=== PATIENT | female | born 1935 | race Caucasian/White ===

== ENCOUNTER → 2017-07-04 17:18 | Outpatient (CLI) | payer MEDICARE, BC, SELFPAY ==
--- NOTE | 2017-07-04 | FLU_PTH ---
PATIENT: ALEX FLORIAN LOC: [facility] U#:[id number] AGE/SX: 89/F ROOM: RE07/04/[address]: Dr. Carol Brooks MD : 1935 BED: DIS: SPEC #: [id number] RECD: 07/04/17 16:52 STATUS: STEVEN RICARDO #: [id number] DENIS: 07/04/17 00:[address]: Carol Brooks DEPT: CYTOLOGY RECD BY: Victor M Malik ENTERED: 07/05/17 12:09 SP TYPE: Fluid OTHR DR: Dr. Robby Bautista MD Tissues: A - Thyroid gland, NOS B - Thyroid gland, NOS Procedures: Pap Stain (control) Special Stain Group II Surgery Specimen Level IV Cell Block Cytospin Fluid Cytology Other HEADER OPERATION: FNA of right thyroid nodule PRE-OP DIAGNOSIS: Inferior right thyroid nodule TISSUE SUBMITTED: A ? FNA right thyroid nodule fluid for cytology, B - FNA right thyroid nodule (8?slides) DIAGNOSIS CYTOLOGY A. Right thyroid nodule fluid, FNA (cytospin and cell block): Rare benign follicular cells noted. B. Right thyroid nodule, FNA (smears): Consistent with benign follicular nodule. See cytology study and comment. SJ:crystal 07/06/17 COMMENT Correlation with clinical, radiologic findings and appropriate follow up are necessary. CYTOLOGY STUDY Slides are reviewed. B. The specimen is adequate for evaluation. The specimen consists of benign follicular cells and colloid. CYTOLOGY GROSS A - Received is 50 ml of francois, cloudy fluid labeled with the patient's name and and designated per the requisition as right thyroid. Submitted for cytology preparation including cell block. B - Received are eight smears labeled with the patient's name and designated per the requisition as right thyroid nodule. Submitted for staining. / 07/05/17 TC:5 CPT: 29516, 16929, 00454
== END ==
PROVIDERS: Family Provider Internal Medicine; PCP Internal Medicine; Visit Provider Surgery
DX: E04.1 Nontoxic single thyroid nodule (principal)
CPT/HCPCS: 88108; 88161; 88305; 88313

== ENCOUNTER 2017-12-20 14:37 | Emergency (ER) | payer MEDICARE, BC, SELFPAY ==
[2017-12-20 14:39] VITALS: BP 162/88; PULSE 88; RESP 17; TEMP 37.2; O2SAT 94; BMI 28.9
--- NOTE | 2017-12-20 15:10 | RAD_ITS ---
STUDY: X-RAY CHEST REASON FOR EXAM: Female, 82 years old. Increasing neck pain and shoulder pain. TECHNIQUE: Single AP portable view of the chest. COMPARISON: Comparison is made with prior examination dated May 14, 2013. FINDINGS: Hyperinflation. Scattered calcified granulomas. There is no demonstrated pleural abnormality. There is mild cardiac enlargement. Normal mediastinum and rima. Normal visualized pulmonary arteries. There is atherosclerotic calcification of the aortic arch with tortuosity. There are diffuse degenerative changes of the visualized thoracic spine. Normal visualized ribs, clavicles, and shoulders. Large hiatal hernia. RAD/Chest 1 View (Portable) IMPRESSION: Large hiatal hernia. Electronically Signed: Cam Cruz MD at 15:36 EDT Tel [phone], Service support ,
--- NOTE | 2017-12-20 15:10 | EKG12_ITS ---
Test Reason : SHOULDER PAIN Blood Pressure : / mmHG Vent. Rate : 077 BPM Atrial Rate : 077 BPM P-R Int : 180 ms QRS Dur : 090 ms QT Int : 388 ms P-R-T Axes : 057 029 057 degrees QTc Int : 439 ms Normal sinus rhythm Possible Left atrial enlargement Borderline ECG Confirmed by VALERIE LAGUNA, TAMIA ([id number]), fan mail editor IZZY GARDNER ([id number]) on 12/24/2017 2:49:54 PM Referred By: ROLY Confirmed By:TAMIA PADILLA MD
--- NOTE | 2017-12-20 15:16 | ED.DCSUM_ITS ---
- ER Visit Summary Date of Service: 12/20/17 Chief Complaint: Shoulder pain History of Present Illness: The patient is a 82 F with left shoulder pain that started yesterday evening around 5 PM. The pain does not radiate. It is worse when laying on her stomach. It makes her nauseated and she had increased reflux and vomiting. She also reports that her stomach is burning. She has a history of a hiatal hernia and acid reflux. She took Tylenol but it did not seem to help. She thinks the pain is making her symptoms worse. She has had this many times in the past. She denies any cardiac history, history of aortic disease, or history of PE. She denies any chest pain or shortness of breath. Denies fevers or abdominal pain. Denies injuries. Denies leg pain or swelling. Physical Examination: Afebrile and vital signs unremarkable. Alert and oriented. No acute distress. Sitting comfortably. Neck is nontender with good range of motion. Heart regular rate and rhythm. Lungs clear bilaterally. Abdomen soft and nontender. Back is nontender. Skin appears unremarkable. Extremities nontender with no edema. Good pulses and sensation distally. Test Results: Testing is pending. Emergency Department Course and Treatment: I believe the patient has referred pain from her acid reflux. I did consider cardiac, pulmonary, vascular, and other GI pathology. EKG, chest x-ray, labs pending. Will treat with Zofran and a GI cocktail while awaiting results. Patient had good improvement in her symptoms after treatment with GI cocktail and Zofran. Her laboratory studies, chest x-ray, and EKG were all unremarkable except for a large hiatal hernia. I believe this is the cause of her symptoms and not referred cardiac pain. This was discussed with the patient and her family. I advised the only way to check for things like acute coronary syndrome, dissection, and PE would entail admission or further testing. They declined. She would like to follow-up with her doctor. I advised to call tomorrow. She will increase her Prilosec. She has Zofran at home to use. Return for any new or worsening issues. Treatment Plan: As above Disposition: Discharged Impression: 1. Gastroesophageal reflux disease 2. Hiatal hernia This note was generated with Logic[employer] software. It may contain incorrect words, spelling, and punctuation that were not noted in review of the chart prior to signing ED Disposition - Plan for ED Patient: Chief Complaint: Other, Pain/Inj Referrals: Robby Bautista MD [Primary Care Provider] -
[2017-12-20] MEDS: Ondansetron 4 MG/2 ML Vial IV (15:27)
[2017-12-20] MEDS: Mag Hydrox/Al Hydrox/Simeth 30 ML UDC PO (15:27)
[2017-12-20 15:29] VITALS: BP 153/81; PULSE 79; RESP 20; O2SAT 95
[2017-12-20 15:39] LABS: Absolute Lymphocyte Count 0.66 X10^3/ul (0.83-4.51); Absolute Neutrophil Count 6.5 X10^3/uL (2.0-7.7); Basophil# 0.01 X10^3/uL; Basophil% 0.1 % (0-1); Hematocrit 37.9 % (37-47); Hemoglobin 12.4 g/dl (12.0-15.0); Lymphocyte # 0.66 X10^3/ul (4.0); Lymphocyte % 8.7 % (19-41); Mean Corp Hgb Conc 32.7 g/gl (32-36); Mean Corpuscular Volume 91.8 fL (81-99); Mean Platelet Vol. 9.1 fl (6.2-12.0); Monocyte# 0.39 X10^3/uL; Monocyte% 5.1 % (0-10); Neutrophil # 6.54 X10^3/uL (2.7-7.7); Platelet Count 270 K/mm3 (150-450); RBC Distribution Width CV 14.2 % (11.6-14.6); RBC Distribution Width SD 47.5 fl (35.1-43.9); Red Blood Count 4.13 M/mm3 (4.2-5.4); White Blood Count 7.6 K/mm3 (4.4-11.0)
[2017-12-20 15:50] LABS: POSITIVE COUNT NO; POSITIVE DIFFERENTIAL NO; POSITIVE MORPHOLOGY NO
[2017-12-20 15:57] LABS: AST(SGOT) 14 U/L (15-37); Alanine Aminotransfer ALT/SGPT 21 U/L (13-56); Albumin, Serum 3.6 g/dL (3.2-5.0); Alkaline Phosphatase 66 U/L (45-117); Anion Gap 12 (5-15); BUN 18 mg/dL (7-18); BUN/Creat Ratio 21.6 RATIO (10-20); Bilirubin, Direct 0.09 mg/dL (0.00-0.30); Calcium,Total 9.1 mg/dL (8.5-10.1); Chloride 103 mmol/L (98-107); Creatinine, Serum 0.83 mg/dL (0.55-1.02); EST Glomerular Filtration Rate 70 mL/min (>60); Est Glom Filt Rate - Afr Amer 85 mL/min (>60); Estimated Creatinine Clearance 44.72 ml/min; Globulin 4.2 g/dL (2.2-4.2); Glucose 131 mg/dL (74-106); Lipase 212 U/L (73-393); Potassium 4.1 mmol/L (3.5-5.1); Protein, Total 7.8 g/dL (6.4-8.2); Sodium Level 139 mmol/L (136-145)
--- NOTE | 2017-12-20 16:17 | ED.DEP ---
ED Disposition - Plan for ED Patient: Chief Complaint: Other, Pain/Inj Instructions: ED GERD Referrals: Robby Bautista MD [Primary Care Provider] -
[2017-12-20 16:27] VITALS: BP 148/75; PULSE 72; RESP 18; O2SAT 98
== END 2017-12-20 16:27 | disposition home or self-care (01) ==
PROVIDERS: Emergency Provider Emergency Medicine; Family Provider Internal Medicine; PCP Internal Medicine
DX: K21.9 Gastro-esophageal reflux disease without esophagitis (principal); K44.9 Diaphragmatic hernia without obstruction or gangrene; R11.2 Nausea with vomiting, unspecified; M54.2 Cervicalgia; I10 Essential (primary) hypertension; M19.90 Unspecified osteoarthritis, unspecified site; Z79.899 Other long term (current) drug therapy; Z87.440 Personal history of urinary (tract) infections
CPT/HCPCS: 71045; 80048; 80076; 83690; 84484; 85025; 93005; 96374; 99285; J2405

== ENCOUNTER 2019-02-27 16:29 | Emergency (ER) | payer MEDICARE, BC, SELFPAY ==
[2019-02-27 16:30] VITALS: BP 166/77; PULSE 99; RESP 17; TEMP 37.2; O2SAT 93; BMI 26.5
--- NOTE | 2019-02-27 17:05 | EKG12_ITS ---
Test Reason : N AND VOMIT Blood Pressure : / mmHG Vent. Rate : 092 BPM Atrial Rate : 092 BPM P-R Int : 184 ms QRS Dur : 100 ms QT Int : 370 ms P-R-T Axes : 053 033 053 degrees QTc Int : 457 ms Normal sinus rhythm Possible Left atrial enlargement Borderline ECG Confirmed by RAYMOND LAGUNA, KILO ([id number]), desk editor IZZY GARDNER ([id number]) on 03/02/2019 10:03:35 AM Referred By: PARKER Confirmed By:JACE NADRADE MD
--- NOTE | 2019-02-27 17:08 | ED.DCSUM_ITS ---
History of Present Illness Chief Complaint: Nausea/Vomiting/Diarrhea Informant: Patient - Abdominal Pain/Flank Pain Onset: Yesterday Context: Gradual Onset Timing: Continuous Quality: Sharp - Nausea/Vomiting/Emesis GI Symptom: Nausea, Vomiting Onset: Yesterday Quality: Coffee ground - Diarrhea/Melena/Hematochezia GI Symptom: Diarrhea - x1 Onset: Yesterday Stool Quality: Negative for: Black, Maroon, RENETTA per rectum Narrative: Patient is an 83-year-old female with history of low back pain, hypertension and a hiatal hernia presenting with vomiting and diarrhea. Patient states she started vomiting last night. She is had 7 episodes of vomiting. She states she feels very nauseous and has pain in her left neck/upper back. She states that the pain is very severe she vomits. Pain is worse with movement. Her [id number] thought some of her emesis looked coffee-ground so she recommended the patient come to emergency room for further evaluation. Patient also had one episode of diarrhea. Patient denies any black or blood in her stool. Patient denies any abdominal pain. She states she said prior episodes and thinks it is her hiatal hernia. She denies a history of small bowel obstruction. She denies any chest pain, shortness of breath or difficulty breathing. She denies any fever or chills. She denies any other complaints at this time. Prior similar symptoms: Yes Recent Illness/Hospitalization: No Past Medical History - Allergies and Home Meds Allergies/Adverse Reactions: Allergies aspirin Adverse Reaction (Verified 02/27/19 16:30) Other ibuprofen Adverse Reaction (Verified 02/27/19 16:30) Other latex Adverse Reaction (Verified 02/27/19 16:30) Rash Primary Care Physician: Robby Bautista MD [Primary Care Provider] - Past Medical History: - - Hiatal hernia, hypertension Surgical History: hysterectomy, - Smoking Status: Never smoker Review of Systems General: Denies: Chills, Fever, Sweats Eyes: Denies: Visual changes - bilaterally, Diplopia ENT: Denies: Rhinorrhea, Sore throat Cardiovascular: Denies: Chest pain, Palpitations Respiratory: Denies: Dyspnea, Cough, Dyspnea on exertion Gastrointestinal: Reports: Abdominal pain, Nausea, Vomiting, Diarrhea. Denies: Melena, Hematochezia Genitourinary: Denies: Dysuria, Hematuria, Frequency Musculoskeletal: Reports: Neck pain. Denies: Back pain, Extremity Pain Skin: Denies: Rash, Wounds Neurological: Denies: Headache, Weakness, Numbness Physical Exam Vital Signs/Narrative: Vital Signs Temp Pulse Resp BP Pulse Ox 02/27/19 16:30 98.9 F 99 17 166/77 H 93 Inital Vital Signs reviewed: Yes General: Well nourished, Well developed, No Acute Distress Head: Normocephalic, Atraumatic Eyes: Perrl, EOMI. Negative for: Pale conjunctiva ENT: Moist mucous membranes, No rhinorrhea Neck: Supple, Nontender, No JVD, - - Left paraspinal tenderness to palpation, tenderness palpation over the left upper trapezius Cardiovascular: Regular rate, Regular rhythm, No murmurs Respiratory: No distress, CTA bilaterally, Chest nontender Abdomen: Soft, Nontender, Nondistended, Hypoactive bowel sounds Back: Nontender, Normal Inspection Extremities: Nontender, No edema Skin: Normal color, No rash Neurological: Alert, Oriented x3, Cranial nerves II-XII grossly intact, Normal Strength, Normal Sensation Psychological: Normal affect, Normal Mood Diagnostic/Tx/Re-eval Clinical Impression(s) from Imaging Studies Abdomen/Pelvis CT 02/27/19 17:10 IMPRESSION: 1. Paraesophageal hernia of the stomach. There is marked distention of the proximal stomach thought to be due to compression of the antrum by the distended stomach, causing functional obstruction. The paraesophageal hernia was present on the prior study without the distention seen on the current exam. 2. Question vesicocele. The Eddy catheter, present on the prior study is no longer seen. 3. No other major abdominal or pelvic interval change. Electronically Signed: Riki Orozco DO at 19:29 EST Tel [phone], Service support , ADDENDUM: 02/27/191945 IMPRESSION: 1. Paraesophageal hernia of the stomach. There is marked distention of the proximal stomach thought to be due to compression of the antrum by the distended stomach, causing functional obstruction. The paraesophageal hernia was present on the prior study without the distention seen on the current exam. 2. Question vesicocele. The Eddy catheter, present on the prior study is no longer seen. 3. No other major abdominal or pelvic interval change. N.B. : The above information has been verbally conveyed by Riki Orozco DO to Dr. Elizabeth Alonso MD, on 02/27/2019 19:39:39 (ET). Electronically Signed: Riki Orozco DO at 19:29 EST Tel [phone], Service support , Laboratory Data 02/27/19 02/27/19 02/27/19 18:08 18:08 18:08 WBC 8.1 RBC 4.80 Hgb 14.5 Hct 44.6 MCV 92.9 MCH 30.2 MCHC 32.5 RDW Std Deviation 43.6 RDW Coeff of Bianca 12.7 Plt Count 315 MPV 9.3 Immature Gran % (Auto) 0.400 Neut % (Auto) 90.7 H Lymph % (Auto) 6.7 L Traill % (Auto) 2.1 Eos % (Auto) 0.0 Baso % (Auto) 0.1 Absolute Neuts (auto) 7.3 Absolute Lymphs (auto) 0.54 L Nucleated RBC % 0 Differential Comment SEE COMMENT Platelet Estimate ADEQUATE RBC Morphology N CHROM Anisocytosis RARE Macrocytosis RARE Ovalocytes RARE PT INR APTT Sodium 139 Potassium 3.3 L Chloride 102 Carbon Dioxide 28.0 Anion Gap 9 BUN 22 H Creatinine 0.85 Estim Creat Clear Calc 42.94 Est GFR (MDRD) Af Amer 83 Est GFR (MDRD) Non-Af 68 BUN/Creatinine Ratio 25.9 H Glucose 160 H Calcium 10.3 H Total Bilirubin 0.60 AST 14 L ALT 17 Alkaline Phosphatase 76 Troponin I < 0.015 Total Protein 8.6 H Albumin 4.3 Globulin 4.3 H Albumin/Globulin Ratio 1.0 Lipase 306 Urine Color Urine Clarity Urine pH Ur Specific [place] Urine Protein Urine Glucose (UA) Urine Ketones Urine Occult Blood Urine Nitrite Urine Bilirubin Urine Urobilinogen Ur Leukocyte Esterase Urine RBC Urine WBC Ur Squamous Epith Cells Urine Bacteria Urine Mucus Blood Type AB NEGATIVE Antibody Screen NEGATIVE 02/27/19 02/27/19 18:08 20:25 WBC RBC Hgb Hct MCV MCH MCHC RDW Std Deviation RDW Coeff of Bianca Plt Count MPV Immature Gran % (Auto) Neut % (Auto) Lymph % (Auto) Traill % (Auto) Eos % (Auto) Baso % (Auto) Absolute Neuts (auto) Absolute Lymphs (auto) Nucleated RBC % Differential Comment Platelet Estimate RBC Morphology Anisocytosis Macrocytosis Ovalocytes PT 13.4 INR 1.0 APTT 25.2 Sodium Potassium Chloride Carbon Dioxide Anion Gap BUN Creatinine Estim Creat Clear Calc Est GFR (MDRD) Af Amer Est GFR (MDRD) Non-Af BUN/Creatinine Ratio Glucose Calcium Total Bilirubin AST ALT Alkaline Phosphatase Troponin I Total Protein Albumin Globulin Albumin/Globulin Ratio Lipase Urine Color Yellow Urine Clarity Clear Urine pH 7.0 Ur Specific [place] 1.010 Urine Protein 30 H Urine Glucose (UA) 50 H Urine Ketones 50 H Urine Occult Blood 10 H Urine Nitrite Negative Urine Bilirubin Negative Urine Urobilinogen Normal Ur Leukocyte Esterase 25 H Urine RBC 0-5 SEEN Urine WBC 0 SEEN Ur Squamous Epith Cells 0-5 SEEN Urine Bacteria 0 SEEN Urine Mucus 0 SEEN Blood Type Antibody Screen - Rhythm Strip Rhythm Strip: Sinus Rhythm Rate: 92 Ectopy: None - EKG Initial EKG Interpretation: Sinus Rhythm, - - Sinus rhythm at a rate of 92 [place] intervals 184 QRS 100 QTc [address] segments - Medical Decision Making Patient is evaluated for vomiting that is turned into coffee-ground emesis. She appears nontoxic in no acute distress on initial evaluation. She does produce brown emesis while in the room. This is Gastroccult positive. Patient is initially given Zofran and then requires a dose of Phenergan for her nausea. She is complaining of persistent neck pain and is given patient is hemodynamically stable and is a normal hemoglobin. Because of patient's profuse vomiting and diminished bowel sounds a CT of the abdomen and pelvis is obtained which is concerning for a large hiatal hernia that is causing a gastric outlet obstruction. This is likely the cause of patient's symptoms. Discussed with Dr. Brooks, [facility] surgery, who feels that her hiatal hernia and obstruction is too complex for [facility] and recommends transfer. Patient is ultimately accepted by Dr. Edmond at [facility]. Initially an NG tube placement patient did not tolerated and asked to be pulled immediately. It is replaced after giving the patient break and discussing the benefits of it. Patient immediately has a 500 cc of dark brown liquid out. KUB reviewed by myself which shows proper placement. Patient is given 4 mg of morphine prior to transfer. Patient and family are agreeable transported patient is transferred in stable condition. ED Disposition - Plan for ED Patient: Disposition: [facility] Diagnosis: Hiatal hernia, Gastric outlet obstruction, Upper GI bleed Referrals: Robby Bautista MD [Primary Care Provider] -
--- NOTE | 2019-02-27 17:10 | CT_ITS ---
We are attempting to reach an attending provider to discuss findings. An addendum with communication details will be sent when the communication is complete. STUDY: CT ABDOMEN AND PELVIS WITH CONTRAST REASON FOR EXAM: Female, 83 years old. Nausea. Vomiting. Diarrhea for 1 day. Abdominal pain. RADIATION DOSAGE (If Supplied By Facility): CTDIvol = ( 016.85 ) mGy, DLP = ( 1540.17 ) mGycm TECHNIQUE: Transaxial images were obtained from the dome of the diaphragm to the symphysis pubis without oral contrast. IV 100mL Isovue-370 was administered. Sagittal and coronal images were reconstructed. Individualized dose optimization techniques were used for this CT. COMPARISON: January 25, 2017. FINDINGS: The visualized lung bases are unremarkable. The heart is compressed anteriorly by a large retrocardiac hiatal hernia. Normal liver. Normal gallbladder and extrahepatic biliary system. Normal spleen. Normal pancreas. Normal bilateral adrenal glands. There are multiple parapelvic renal cysts without evidence of renal calculi or hydronephrosis. Normal right ureter. There are multiple left parapelvic renal cyst without mass or renal calculi. Normal left ureter. There is a paraesophageal hernia of the stomach with the body and antrum in the chest posterior to the heart. The fundus lies below the left diaphragm. There is marked compression of the distal antrum due to the hernia with marked distention of stomach with air and fluid suggesting functional obstruction. Normal small intestine. Normal colon. The appendix is visualized and appears normal. There is diffuse atherosclerotic calcification of the abdominal aorta, without a demonstrated aneurysm. Normal inferior vena cava. Normal retroperitoneum. Normal urinary bladder. A Eddy catheter is seen on the prior study is no longer noted. Question vesicocele. Normal vaginal cuff. There is no pelvic lymphadenopathy or mass. No free air or free fluid is seen within the peritoneal cavity. Umbilical hernia of omental fat. The abdominal wall is otherwise unremarkable. There are diffuse degenerative changes of the visualized lumbar spine. CT/Abdomen/Pelvis W IV Cont ONLY IMPRESSION: 1. Paraesophageal hernia of the stomach. There is marked distention of the proximal stomach thought to be due to compression of the antrum by the distended stomach, causing functional obstruction. The paraesophageal hernia was present on the prior study without the distention seen on the current exam. 2. Question vesicocele. The Eddy catheter, present on the prior study is no longer seen. 3. No other major abdominal or pelvic interval change. Electronically Signed: Riki Orozco DO at 19:29 EST Tel [phone], Service support ,
[2019-02-27] MEDS: Morphine 4 MG/ML Syringe IV ×2 (17:42→22:42)
[2019-02-27] MEDS: Ondansetron 4 MG/2 ML Vial IV (17:42)
[2019-02-27] MEDS: 0.9% Normal Saline 1,000 ML 1000 ML IV (17:43)
[2019-02-27] MEDS: proMETHazine 25 MG/ML Syringe 12.5 MG IV (18:25)
[2019-02-27 18:30] LABS: Absolute Lymphocyte Count 0.54 X10^3/uL (0.83-4.51); Absolute Neutrophil Count 7.3 X10^3/uL (2.0-7.7); Basophil# 0.01 X10^3/uL; Basophil% 0.1 % (0-1); Hematocrit 44.6 % (37-47); Hemoglobin 14.5 g/dL (12.0-15.0); Lymphocyte # 0.54 X10^3/ul (4.0); Lymphocyte % 6.7 % (19-41); Mean Corp Hgb Conc 32.5 g/dL (32-36); Mean Corpuscular Hgb 30.2 pg (27.0-32.0); Mean Corpuscular Volume 92.9 fL (81-99); Mean Platelet Vol. 9.3 fl (6.2-12.0); Monocyte# 0.17 X10^3/uL; Monocyte% 2.1 % (0-10); NRBC Flagged by Analyzer 0 % (0-5); Neutrophil % 90.7 % (47-70); POSITIVE DIFFERENTIAL YES; Platelet Count 315 K/mm3 (150-450); RBC Distribution Width CV 12.7 % (11.6-14.6); RBC Distribution Width SD 43.6 fl (35.1-43.9); White Blood Count 8.1 K/mm3 (4.4-11.0)
[2019-02-27 18:44] LABS: AST(SGOT) 14 U/L (15-37); Alanine Aminotransfer ALT/SGPT 17 U/L (13-56); Albumin, Serum 4.3 g/dL (3.2-5.0); Alkaline Phosphatase 76 U/L (45-117); Anion Gap 9 (5-15); BUN 22 mg/dL (7-18); BUN/Creat Ratio 25.9 RATIO (10-20); Calcium,Total 10.3 mg/dL (8.5-10.1); Chloride 102 mmol/L (98-107); Creatinine, Serum 0.85 mg/dL (0.55-1.02); EST Glomerular Filtration Rate 68 mL/min (>60); Est Glom Filt Rate - Afr Amer 83 mL/min (>60); Estimated Creatinine Clearance 42.94 ml/min; Globulin 4.3 g/dL (2.2-4.2); Glucose 160 mg/dL (74-106); Lipase 306 U/L (73-393); Potassium 3.3 mmol/L (3.5-5.1); Protein, Total 8.6 g/dL (6.4-8.2); Sodium Level 139 mmol/L (136-145)
[2019-02-27 18:52] LABS: Differential Indicated SCAN CRITERIA MET
[2019-02-27 19:22] LABS: Anisocytosis RARE; Macrocytosis RARE; Ovalocyte RARE; Platelet Estimate ADEQUATE (ADEQ); Red Cell Morphology N CHROM NORMAL (NORM C&C)
[2019-02-27 19:23] VITALS: BMI 26.6
[2019-02-27 19:30] VITALS: PULSE 92; RESP 20
--- NOTE | 2019-02-27 19:31 | ED.RN ---
PER [facility] NO BEDS AVAILABLE
--- NOTE | 2019-02-27 19:36 | ED.RN ---
[facility] CHECKING AVAILABILITY
[2019-02-27 19:40] VITALS: BP 178/83; PULSE 92; RESP 18; TEMP 37.1; O2SAT 95
[2019-02-27 19:55] LABS: Prothrombin Time (Protime)PT. 13.4 SECONDS (11.7-14.9)
[2019-02-27 19:56] LABS: Partial Thromboplast Time 25.2 Seconds (24.1-36.2)
[2019-02-27] MEDS: Oxymetazoline 0.05% 1 SPRAY SPRAY.BTL 2 SPRAY NASAL (20:19)
[2019-02-27 20:44] LABS: Bacteria 0 SEEN /hpf (None Seen); Mucous, Urine 0 SEEN /hpf (<or=2+); White Blood Cells 0 SEEN /hpf (0-5)
[2019-02-27 20:47] LABS: Color, Urine Yellow (Yellow); Glucose, Dipstick 50 mg/dl (Normal); Ketone-Dipstick 50 mg/dl (Negative); Leukocyte Esterase-Dipstick 25 /ul (Negative); Nitrite-Dipstick Negative (Negative); Occult Blood-Urine 10 /ul (Negative); Protein-Dipstick 30 mg/dl (Negative); Urine Bilirubin Dipstick Negative (Negative); Urine Clarity Clear (Clear); Urine Urobilinogen Normal (Normal)
[2019-02-27 20:57] LABS: Squamous Epithelial Cells - UA 0-5 SEEN /hpf (5-10)
[2019-02-27 20:58] LABS: Red Blood Cells-Urine 0-5 SEEN /hpf (0-5)
[2019-02-27 21:00] VITALS: RESP 16
[2019-02-27 22:17] VITALS: PULSE 94; RESP 20
[2019-02-27] MEDS: Lidocaine 4% 5 ML Ampul 2 ML INHALATION (22:21)
--- NOTE | 2019-02-27 22:30 | RAD_ITS ---
STUDY: X-RAY - ABDOMEN/PELVIS REASON FOR EXAM: Female, 83 years old. NG placement TECHNIQUE: KUB COMPARISON: None. FINDINGS: Normal visualized lung bases. Heart is enlarged. Nasogastric tube is noted extending below the diaphragm into the stomach curling upon itself and extending cephalad into the more proximal stomach which is in a large hiatal hernia RAD/Abdomen Single View (Portable) IMPRESSION: Nasogastric tube placement with tip in the intrathoracic portion of the stomach Electronically Signed: Carlin Chan MD at 22:44 EST , Service support ,
[2019-02-27 22:33] VITALS: BP 199/101; PULSE 100; RESP 16; O2SAT 96
== END 2019-02-27 23:00 | disposition short-term general hospital (02) ==
PROVIDERS: Emergency Provider Emergency Medicine; Family Provider Internal Medicine; PCP Internal Medicine
DX: K44.9 Diaphragmatic hernia without obstruction or gangrene (principal); K31.1 Adult hypertrophic pyloric stenosis; K92.1 Melena; R11.2 Nausea with vomiting, unspecified; R19.7 Diarrhea, unspecified; R10.9 Unspecified abdominal pain; I10 Essential (primary) hypertension; M54.5 Low back pain; M54.6 Pain in thoracic spine; Z79.899 Other long term (current) drug therapy; Z88.6 Allergy status to analgesic agent; Z90.710 Acquired absence of both cervix and uterus
CPT/HCPCS: 74018; 74177; 80053; 81001; 82271; 82274; 83690; 84484; 85025; 85610; 85730; 86850; 86900; 86901; 93005; 94640; 96361; 96374; 96375; 96376; 99284; J7030; Q9967; A4216; J2405; J3490

== ENCOUNTER 2019-05-24 14:07 | Emergency (ER) | payer MEDICARE, BC, SELFPAY ==
[2019-05-24 14:08] VITALS: BP 161/87; PULSE 79; RESP 18; TEMP 37.2; O2SAT 96; BMI 28.0
[2019-05-24 14:11] VITALS: BP 161/87; PULSE 79; RESP 18; TEMP 37.2; O2SAT 96
--- NOTE | 2019-05-24 14:35 | EKG12_ITS ---
Test Reason : COMPLAINT Blood Pressure : / mmHG Vent. Rate : 070 BPM Atrial Rate : 070 BPM P-R Int : 160 ms QRS Dur : 090 ms QT Int : 394 ms P-R-T Axes : 052 001 030 degrees QTc Int : 425 ms Normal sinus rhythm Possible Left atrial enlargement Possible Inferior infarct , age undetermined Abnormal ECG Confirmed by EUGENE LAGUNA, LOTUS ([id number]), news videotape editor SPENSER TSAI ([id number]) on 05/26/2019 10:13:50 AM Referred By: KAROL Confirmed By:LOTUS KNIGHT MD
--- NOTE | 2019-05-24 14:36 | ED.DCSUM_ITS ---
History of Present Illness Chief Complaint: Complaint Informant: Patient, Family Onset: Weeks - 3 Context: Gradual Onset Timing: Continuous Quality: malaise, nausea, urinary urgency/frequency Current Severity: Moderate Maximum Severity: Severe Worsened by: nothing Relieved by: nothing Narrative: Patient states she has had symptoms for about 3 weeks. No dysuria but she has had urgency and some frequency. She has chronic discomfort in her low back that is no worse. Apparently she was vomiting and pretty sick a week or so ago, she went to the chiropractor for her back and they referred her to the ER at [place], where she was diagnosed with a urinary tract infection, and a leukocytosis and was vomiting so they admitted her with IV antibiotics, she was discharged to multiple days ago and finished her Bactrim orally yesterday and still has symptoms of malaise, nausea, back discomfort, urinary frequency and urgency. Family member apparently came and did a urine dipstick test at home and said that she should go to urgent care which she did and then was referred here to the ER. She is concerned she may have a persistent urinary tract infection. She denies any new symptoms. She admits that she does not feel as bad as she did when she was admitted to the hospital 1 week ago. 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 (2) Neuralgia of upper extremity Status: Chronic (3) Sciatica of left side Status: Chronic (4) Benign essential HTN Status: Chronic (5) Chronic back pain Status: Chronic (6) Dyslipidemia Status: Chronic (7) Osteoarthritis Status: Chronic Past Medical History - Allergies and Home Meds Allergies/Adverse Reactions: Allergies aspirin Adverse Reaction (Verified 02/27/19 16:30) Other ibuprofen Adverse Reaction (Verified 05/24/19 14:12) Other HX ULCERS latex Adverse Reaction (Verified 02/27/19 16:30) Rash Primary Care Physician: Robby Bautista MD [Primary Care Provider] - Surgical History: hysterectomy, - - hiatal hernia repair Lives: Alone Smoking Status: Never smoker Review of Systems General: Reports: Malaise. Denies: Chills, Fever, Sweats Eyes: Denies: Visual changes - bilaterally, Diplopia ENT: Denies: Rhinorrhea, Sore throat Cardiovascular: Denies: Chest pain, Palpitations Respiratory: Denies: Dyspnea, Cough, Dyspnea on exertion Gastrointestinal: Reports: Nausea. Denies: Abdominal pain, Vomiting, Diarrhea, Melena, Hematochezia Genitourinary: Reports: Frequency, - - urgency. Denies: Dysuria, Hematuria Musculoskeletal: Reports: Back pain, Swelling - chronic BLE, symmetric, unchanged. Denies: Neck pain, Extremity Pain Skin: Denies: Rash, Wounds Neurological: Denies: Headache, Weakness, Numbness Physical Exam Vital Signs/Narrative: Vital Signs Temp Pulse Resp BP Pulse Ox 05/24/19 14:11 99 F 79 18 161/87 H 96 05/24/19 14:08 99 F 79 18 161/87 H 96 Inital Vital Signs reviewed: Yes General: Well nourished, Well developed, No Acute Distress - well-appearing, nad Head: Normocephalic, Atraumatic Eyes: Perrl, EOMI ENT: Moist mucous membranes, No rhinorrhea Neck: Supple, Nontender, No lymphadenopathy Cardiovascular: Regular rate, Regular rhythm, No murmurs. Negative for: Tachycardia Respiratory: No distress, CTA bilaterally, Chest nontender Abdomen: Soft, Nontender, Nondistended, Normal bowel sounds Back: Nontender - FROM, Normal Inspection. Negative for: CVA tenderness Extremities: Nontender, Edema - 1+ BLE, symmetric without stasis/cellulitis/tenderness, to midshins bilat Skin: Normal color, No rash, No Trauma Neurological: Alert, Oriented x3, Cranial nerves II-XII grossly intact, Normal Strength, Normal Sensation, Normal Gait Psychological: Normal affect, Normal Mood Diagnostic/Tx/Re-eval Laboratory Results 05/24/19 05/24/19 05/24/19 14:20 15:05 15:05 WBC 6.5 RBC 3.63 L Hgb 10.6 L Hct 33.7 L MCV 92.8 MCH 29.2 MCHC 31.5 L RDW Std Deviation 49.2 H RDW Coeff of Bianca 14.4 Plt Count 381 MPV 8.7 Immature Gran % (Auto) 1.100 H Neut % (Auto) 73.6 H Lymph % (Auto) 15.2 L [place] % (Auto) 6.1 Eos % (Auto) 3.7 Baso % (Auto) 0.3 Absolute Neuts (auto) 4.8 Absolute Lymphs (auto) 0.99 Nucleated RBC % 0 Sodium 136 Potassium 4.1 Chloride 102 Carbon Dioxide 28.0 Anion Gap 6 BUN 16 Creatinine 0.92 Estim Creat Clear Calc 37.93 Est GFR (MDRD) Af Amer 75 Est GFR (MDRD) Non-Af 62 BUN/Creatinine Ratio 17.4 Glucose 93 Calcium 10.0 Troponin I < 0.015 Urine Color Yellow Urine Clarity Clear Urine pH 8.0 Ur Specific [place] 1.010 Urine Protein Negative Urine Glucose (UA) Normal Urine Ketones Negative Urine Occult Blood Negative Urine Nitrite Negative Urine Bilirubin Negative Urine Urobilinogen Normal Ur Leukocyte Esterase 100 H Urine RBC 0 SEEN Urine WBC 0-5 SEEN Ur Squamous Epith Cells 0-5 SEEN Urine Bacteria RARE Urine Mucus 0 SEEN - Rhythm Strip Rhythm Strip: Sinus Rhythm Rate: 70 Ectopy: None - EKG Initial EKG Interpretation: Sinus Rhythm, No Acute Injury Pattern - Medical Decision Making Patient's work-up is unremarkable including cardiac studies, enzymes, renal function. Her white blood count 6.5 which is very reassuring and argues against infection that is active. Her urinalysis shows 100 leukocyte esterace but there is no pyuria and rare bacteria on a clean-catch specimen. I do not think she has an acute urinary tract infection, and I do not recommend more antibiotics at this time. However I will send a culture given the positive indicator, and she is following up after the weekend with her doctor already, on Sunday. If she feels worse or has any new symptoms that she feels need to be evaluated before then, I encouraged her to return to the ER. She and family are comfortable with that plan all questions were answered at the bedside. ED Disposition - Plan for ED Patient: Disposition: Home or Assisted Living Diagnosis: Malaise and fatigue Instructions: WEAKNESS, Unk Cause Referrals: Robby Bautista MD [Primary Care Provider] - Keep Janice appointment
[2019-05-24 14:41] LABS: Mucous, Urine 0 SEEN /hpf (<or=2+); Red Blood Cells-Urine 0 SEEN /hpf (0-5)
[2019-05-24 14:43] LABS: Color, Urine Yellow (Yellow); Glucose, Dipstick Normal (Normal); Ketone-Dipstick Negative (Negative); Leukocyte Esterase-Dipstick 100 /ul (Negative); Nitrite-Dipstick Negative (Negative); Occult Blood-Urine Negative /ul (Negative); Protein-Dipstick Negative (Negative); Urine Bilirubin Dipstick Negative (Negative); Urine Clarity Clear (Clear); Urine Urobilinogen Normal (Normal)
[2019-05-24 14:52] LABS: Bacteria RARE /hpf (None Seen); Squamous Epithelial Cells - UA 0-5 SEEN /hpf (5-10); White Blood Cells 0-5 SEEN /hpf (0-5)
[2019-05-24 15:10] LABS: Absolute Lymphocyte Count 0.99 X10^3/uL (0.83-4.51); Absolute Neutrophil Count 4.8 X10^3/uL (2.0-7.7); Basophil# 0.02 X10^3/uL; Basophil% 0.3 % (0-1); Eosinophil# 0.24 X10^3/uL; Eosinophils% 3.7 % (0-5); Hematocrit 33.7 % (37-47); Hemoglobin 10.6 g/dL (12.0-15.0); Lymphocyte # 0.99 X10^3/ul (4.0); Lymphocyte % 15.2 % (19-41); Mean Corp Hgb Conc 31.5 g/dL (32-36); Mean Corpuscular Hgb 29.2 pg (27.0-32.0); Mean Corpuscular Volume 92.8 fL (81-99); Mean Platelet Vol. 8.7 fl (6.2-12.0); Monocyte% 6.1 % (0-10); NRBC Flagged by Analyzer 0 % (0-5); Neutrophil # 4.79 X10^3/uL (2.7-7.7); Neutrophil % 73.6 % (47-70); Platelet Count 381 K/mm3 (150-450); RBC Distribution Width CV 14.4 % (11.6-14.6); RBC Distribution Width SD 49.2 fl (35.1-43.9); Red Blood Count 3.63 M/mm3 (4.2-5.4); White Blood Count 6.5 K/mm3 (4.4-11.0)
[2019-05-24 15:11] VITALS: PULSE 72; RESP 18; TEMP 36.6; O2SAT 96
[2019-05-24 15:33] LABS: Anion Gap 6 (5-15); BUN 16 mg/dL (7-18); BUN/Creat Ratio 17.4 RATIO (10-20); Chloride 102 mmol/L (98-107); Creatinine, Serum 0.92 mg/dL (0.55-1.02); EST Glomerular Filtration Rate 62 mL/min (>60); Est Glom Filt Rate - Afr Amer 75 mL/min (>60); Estimated Creatinine Clearance 37.93 ml/min; Glucose 93 mg/dL (74-106); Potassium 4.1 mmol/L (3.5-5.1); Sodium Level 136 mmol/L (136-145)
[2019-05-24 16:00] VITALS: PULSE 72; RESP 18; TEMP 36.8; O2SAT 98
[2019-05-24 16:07] VITALS: BP 164/75; PULSE 72; RESP 18; O2SAT 98
== END 2019-05-24 16:28 | disposition home or self-care (01) ==
PROVIDERS: Emergency Provider Emergency Medicine; PCP Internal Medicine
DX: R53.81 Other malaise (principal); R53.83 Other fatigue; R39.15 Urgency of urination; R35.0 Frequency of micturition; I10 Essential (primary) hypertension; E78.5 Hyperlipidemia, unspecified; R11.2 Nausea with vomiting, unspecified; M54.32 Sciatica, left side; M47.812 Spondylosis without myelopathy or radiculopathy, cervical region; G89.29 Other chronic pain; Z79.899 Other long term (current) drug therapy; Z88.6 Allergy status to analgesic agent; Z90.710 Acquired absence of both cervix and uterus
CPT/HCPCS: 80048; 81001; 84484; 85025; 87086; 87088; 93005; 99285; A4216

== ENCOUNTER → 2020-02-10 09:27 | Outpatient (CLI) | payer MEDICARE, BC, SELFPAY ==
--- NOTE | 2020-02-10 07:26 | RAD_ITS ---
PROCEDURE: Fluoroscopic guided Hip Injection DATE: 02/10/2020. INDICATION: Female, 84 years old. Chronic left hip pain. PHYSICIAN: Cam Cruz M.D. MEDICATIONS: 12 mg of CELESTONE and 3 cc of 1% LIDOCAINE. 2% Lidocaine administered subcutaneously for local anesthesia. ACCESS SITE: Left hip. NEEDLE: 22-gauge spinal needle. FLUOROSCOPY TIME (if supplied): (0:52) minutes/seconds FINDINGS: The risks, benefits, and alternatives to the procedure were explained to the patient. The specific risks of bleeding, infection, and neurovascular injury were detailed and accepted. Witnessed informed consent was obtained. A 22-gauge spinal needle was positioned under radiographic fluoroscopic localization. Approximately 2 cc of ISOVUE-300 instilled for localization purposes. Medication was then injected. The patient tolerated the procedure well without any immediate complications. . RAD/Inj/Asp Jorge Jt Should/Hip/Knee IMPRESSION: 1. Successful fluoroscopic guided hip injection. Electronically Signed: Cam Cruz, at 11:26 EST , Service support ,
== END ==
PROVIDERS: PCP Internal Medicine
DX: M16.12 Unilateral primary osteoarthritis, left hip (principal); G89.29 Other chronic pain
CPT/HCPCS: 20610; 77002; Q9967; J0702

== ENCOUNTER 2021-03-28 12:52 | Outpatient (CLI) | payer MEDICARE, BC, SELFPAY ==
--- NOTE | 2021-03-28 13:00 | RAD_ITS ---
STUDY: X-RAY - LUMBAR SPINE REASON FOR EXAM: Female, 85 years old. Other intervertebral disc degeneration, lumbar region TECHNIQUE: 3 view(s) of the lumbar spine were obtained. COMPARISON: None FINDINGS: Normal lumbar lordosis. There is a mild dextroscoliosis of the lumbar spine. Mild anterior listhesis of L5 on S1. There is multilevel endplate spondylosis of the lumbar vertebrae. There is multi-level degenerative disc disease with multi-level disc space narrowing. There is no demonstrated spondylolysis of the pars interarticulares. There is atherosclerotic calcification of the abdominal aorta without a demonstrated aneurysm. RAD/Lumbar Spine 2 or 3 Views IMPRESSION: Degenerative changes of the spine, as detailed above. Electronically Signed: Cam Cruz MD at 15:42 EST , Service support ,
== END 2021-03-28 23:59 | disposition short-term general hospital (02) ==
PROVIDERS: PCP Internal Medicine; Referring Provider Anesthesiology Pain Medicine; Visit Provider Anesthesiology Pain Medicine
DX: M51.36 Other intervertebral disc degeneration, lumbar region (principal)
CPT/HCPCS: 72100

== ENCOUNTER 2021-06-20 12:23 | Outpatient (CLI) | payer MEDICARE, BC, SELFPAY ==
--- NOTE | 2021-06-20 12:30 | RAD_ITS ---
STUDY: X-RAY - CERVICAL SPINE REASON FOR EXAM: Female, 85 years old. SPONDYLOSIS TECHNIQUE: 3 view(s) of the cervical spine were obtained. COMPARISON: None FINDINGS: There are degenerative changes of the anterior atlantoaxial articulation. Normal odontoid process. There is 2 mm spondylolisthesis at C4-5. There is multi-level endplate spondylosis. There is multi-level degenerative disc disease with multilevel disc space narrowing. Normal visualized intervertebral neuroforamina. The soft tissue structures are unremarkable. RAD/Cerv Spine 2 or 3 Views IMPRESSION: Multilevel degenerative disease in the cervical spine. Electronically Signed: Steven Larios MD at 6:20 EDT ,
== END 2021-06-20 23:59 | disposition home or self-care (01) ==
PROVIDERS: PCP Internal Medicine; Referring Provider Anesthesiology Pain Medicine; Visit Provider Anesthesiology Pain Medicine
DX: M47.812 Spondylosis without myelopathy or radiculopathy, cervical region (principal); M50.30 Other cervical disc degeneration, unspecified cervical region
CPT/HCPCS: 72040

== ENCOUNTER 2022-07-19 13:30 | Emergency (ER) | payer MEDICARE, BC, SELFPAY ==
--- NOTE | 2022-07-19 13:33 | CT_ITS ---
STUDY: CT HEAD STROKE PROTOCOL W/O CONTRAST INJECTION REASON FOR EXAM: Female, 87 years old. Neuro deficit, acute, stroke suspected RADIATION DOSAGE (If Supplied By Facility): CTDIvol = ( 44.99 ) mGy, DLP = ( 779.24 ) mGycm TECHNIQUE: Transaxial CT imaging of the brain was performed without administration of intravenous contrast material. Individualized dose optimization techniques were used for this CT. COMPARISON: No relevant priors. FINDINGS: Normal soft tissue structures. Normal calvarium. There is mild cerebral atrophy with widening of the extra-axial spaces and ventricular dilatation. There is evidence of decreased attenuation involving the posterior left frontal lobe as well as the parietal lobe. This is suggestive of ischemic change in the region of the left middle cerebral artery territory. Decreased attenuation in the left basal ganglia. Normal brainstem. Normal cerebellum. There is no intracranial hemorrhage. There are no findings of an acute ischemic infarction. Atherosclerotic calcification of the cavernous portions of the internal carotid arteries bilaterally. Normal visualized paranasal sinuses. CT/STROKE Brain/Head without Cont IMPRESSION: Ischemic change involving the left posterior frontal parietal lobes as well as the left basal ganglion. N.B. : The above Results were Read Back by Cam Cruz MD to Dr Madison DO, and understanding confirmed on 07/19/2022 13:47:06 (ET). Electronically Signed: Cam Cruz MD at 13:48 EDT ,
--- NOTE | 2022-07-19 13:33 | EKG12_ITS ---
Test Reason : STROKE Blood Pressure : / mmHG Vent. Rate : 147 BPM Atrial Rate : 073 BPM P-R Int : 184 ms QRS Dur : 072 ms QT Int : 194 ms P-R-T Axes : -24 064 204 degrees QTc Int : 303 ms Atrial fibrillation Marked ST abnormality, possible lateral subendocardial injury Abnormal ECG Confirmed by EUGENE LAGUNA, LOTUS ([id number]), features editor SPENSER TSAI ([id number]) on 07/20/2022 9:03:27 AM Referred By: BRENNAN Confirmed By:LOTUS KNIGHT MD
--- NOTE | 2022-07-19 13:34 | CT_ITS ---
STUDY: CTA HEAD AND NECK WITH CONTRAST REASON FOR EXAM: Female, 87 years old. Neuro deficit, acute, stroke suspected RADIATION DOSAGE (If Supplied By Facility): CTDIvol = ( 19.37 ) mGy, DLP = ( 624.51 ) mGycm TECHNIQUE: CT angiography was performed with a multi-detector CT scanner. Data acquisition was obtained from the skull base through the vertex following intravenous administration of IV 100mL Isovue-370. MIP images were reconstructed from the axial data set. Post-processing of the angiographic images was performed, with multiplanar reformation and 3D reconstruction. Individualized dose optimization techniques were used for this CT. COMPARISON: No relevant priors. FINDINGS: Normal bilateral petrous carotid arteries. There is calcified plaque formation of the right cavernous carotid artery, without a cross-sectional luminal stenosis. There is calcified plaque formation of the left cavernous carotid artery, without a cross-sectional luminal stenosis. Normal right A1 segments of the anterior cerebral artery. Normal left A1 segments of the anterior cerebral artery. Normal intact anterior communicating artery (ACOM). Normal bilateral A2 segments of the anterior cerebral arteries. Normal right M1 and M2 segments of the middle cerebral arteries, with a normal M1 bifurcation. Abnormal cut off of the M2 branch of the left middle cerebral artery. There is evidence of decreased vascularity in the sylvian fissure. Normal right posterior communicating artery (PCOM). There is a persistent origin of the left posterior cerebral artery with absence of the posterior communicating artery (PCOM). Normal bilateral vertebral arteries. Normal basilar artery with a normal basilar bifurcation. The visualized bilateral superior cerebellar (SCA) arteries are normal. Normal bilateral P1, P2 and visualized P3 segments of the posterior cerebral arteries. There is no demonstrated aneurysm of the [place]. Heterogeneous enlargement of both lobes of the thyroid gland. AORTIC ARCH: There is atherosclerotic calcific plaque formation of the aortic arch and great vessels arising from the aortic arch, without a hemodynamically significant stenosis. There is a normal origin of the brachiocephalic, left common carotid, and left subclavian arteries. RIGHT CAROTID ARTERIES: Normal right common carotid artery (CCA). Normal right common carotid bulb. There is mild atherosclerotic plaque formation of the origin of the right internal carotid artery with less than 50% cross sectional diameter stenosis. Normal visualized cervical portion of the right internal carotid artery. Normal origin of the right external carotid artery (ECA). LEFT CAROTID ARTERIES: There is atherosclerotic plaque formation of the common carotid artery, but without a hemodynamically significant stenosis. Normal left common carotid bulb. There is mild atherosclerotic plaque formation of the origin of the left internal carotid artery with less than 50% cross sectional diameter stenosis. Normal visualized cervical portion of the left internal carotid artery. Normal origin of the left external carotid artery (ECA). VERTEBRAL ARTERIES: There is enhancement within the bilateral vertebral arteries with a small right vertebral artery, and a dominant left vertebral artery. CT/STROKE CTA Head AND Neck W/Con IMPRESSION: Abrupt cut off of the M2 branch of the left middle cerebral artery with decrease in vascularity in the left sylvian fissure. Nonsignificant narrowing at the origins of both the right and left internal carotid arteries. N.B. : The above Results were Read Back by Cam Cruz MD to Dr. Madison DO, and understanding confirmed on 07/19/2022 14:06:29 (ET). Electronically Signed: Cam Cruz MD at 14:07 EDT ,
--- NOTE | 2022-07-19 13:43 | CM.ED ---
Social Work Note Referral Source: Stroke Alert Referral Reason: emotional support SW responded to stroke alert and introduced herself and role to patient's family. Patient's family introduced herself as patient's daughter in law and was agreeable to speak with SW. Patient's daughter in law reviewed recent events including some family issues and patient's medical history. SW provided emotional support and reviewed [facility] response to stroke alert including teleconference with [facility] neurology. SW remains available if additional needs arise. Brit Dickson SALESPERSON [employer], CAROLINE
[2022-07-19 13:44] LABS: Absolute Lymphocyte Count 0.93 X10^3/uL (0.83-4.51); Absolute Neutrophil Count 9.3 X10^3/uL (2.0-7.7); Basophil# 0.03 X10^3/uL; Basophil% 0.3 % (0-1); Hematocrit 40.1 % (37-47); Hemoglobin 13.3 g/dL (12.0-15.0); Lymphocyte # 0.93 X10^3/ul (0.83-4.51); Lymphocyte % 8.6 % (19-41); Mean Corp Hgb Conc 33.2 g/dL (32-36); Mean Corpuscular Hgb 30.3 pg (27.0-32.0); Mean Corpuscular Volume 91.3 fL (81-99); Mean Platelet Vol. 9.4 fl (6.2-12.0); Monocyte# 0.53 X10^3/uL; Monocyte% 4.9 % (0-10); NRBC Flagged by Analyzer 0 % (0-5); Neutrophil # 9.33 X10^3/uL (2.7-7.7); Neutrophil % 85.7 % (47-70); Platelet Count 304 K/mm3 (150-450); RBC Distribution Width CV 14.5 % (11.6-14.6); RBC Distribution Width SD 48.2 fl (35.1-43.9); Red Blood Count 4.39 M/mm3 (4.2-5.4); White Blood Count 10.9 K/mm3 (4.4-11.0)
--- NOTE | 2022-07-19 13:47 | ED.RN ---
Addendum entered by Jb Burns 07/19/22 14:08: 1406: Dr. Trujillo from [facility] assessing patient. Original Note: 1347: [facility] stroke attending on another call. Will beam through robot when available.
[2022-07-19 13:48] VITALS: BP 155/72; PULSE 107; RESP 22; TEMP 37.7; O2SAT 94; BMI 29.2
[2022-07-19 13:52] VITALS: BP 155/72; PULSE 116; RESP 22; TEMP 37.7; O2SAT 94
[2022-07-19 13:53] LABS: International Normalized Ratio 1.1; Prothrombin Time (Protime)PT. 13.6 SECONDS (11.7-14.9)
[2022-07-19 14:02] LABS: Anion Gap 7 (5-15); BUN 27 mg/dL (7-18); BUN/Creat Ratio 31.3 RATIO (10-20); Calcium,Total 10.1 mg/dL (8.5-10.1); Chloride 105 mmol/L (98-107); Creatinine, Serum 0.86 mg/dL (0.55-1.02); EST Glomerular Filtration Rate 66 mL/min (>60); Est Glom Filt Rate - Afr Amer 80 mL/min (>60); Estimated Creatinine Clearance 37.83 ml/min; Glucose 154 mg/dL (74-106); Potassium 3.6 mmol/L (3.5-5.1); Sodium Level 136 mmol/L (136-145); Troponin-I HS 31 pg/mL (3.0-54.0)
[2022-07-19 14:03] VITALS: BP 152/71; PULSE 109; RESP 24; O2SAT 94
[2022-07-19 14:05] VITALS: O2SAT 94
--- NOTE | 2022-07-19 14:07 | ED.VIS.STROK ---
HPI History of Present Illness Chief Complaint: Stroke Alert Informant: EMS Onset/Context/Timing Onset: Yesterday Context: Sudden Onset Timing: Continuous Quality and Location: Positive for Right Facial Droop, Right Arm Weakness and Right Leg Weakness Onset: Last known well was 9 PM last night Narrative Narrative: Patient presents with stroke symptoms that were noticed today. Patient's last known well was 9 PM last night. Patient is nonverbal and is a poor informant. Family reports patient had right-sided neglect right facial weakness and weakness of her right upper and lower extremities. Family states patient is on Eliquis for cardiac dysrhythmia. Family states patient took her normal dose yesterday but does not think she took her dose today. [facility] Medical History (Updated 07/19/22 @ 14:[address] Rosendo Wallace DO) Cardiac dysrhythmia CHF (congestive heart failure) HTN (hypertension) Home Medications benazepril 40 mg tablet (Lotensin) 40 mg PO DAILY 01/25/17 [History Last Taken 02/26/19] amlodipine 2.5 mg tablet 2.5 mg PO DAILY bp 02/27/19 [History Last Taken 02/26/19] baclofen 10 mg tablet 10 mg PO QHS 02/27/19 [History Last Taken 02/26/19] chlorthalidone 25 mg tablet 25 mg PO DAILY 02/27/19 [History Last Taken 02/26/19] omega-3 fatty acids-fish oil 340 mg-1,000 mg capsule 1 cap PO DAILY supplement 02/27/19 [History Last Taken 02/26/19] omeprazole 20 mg capsule,delayed release 20 mg PO DAILY 05/24/19 [History Last Taken Unknown] apixaban 5 mg tablet (Eliquis) mg 07/19/22 [History Last Taken Unknown] Allergy/AdvReac Type Severity Reaction Status Date / Time aspirin AdvReac Other Verified 02/27/19 16:30 ibuprofen AdvReac Other Verified 05/24/19 14:12 latex AdvReac Rash Verified 02/27/19 16:30 Social History Smoking Status: Never smoker ROS ROS ED Review of Systems ROS Unobtainable: due to mental condition EXAM Physical Exam Const Vital Signs: 07/19/22 13:48 07/19/22 13:52 07/19/22 14:05 Temperature 99.8 F H 99.8 F H Temperature Source Temporal Temporal Pulse Rate 107 H 116 H Respiratory Rate 22 H 22 H Blood Pressure 155/72 H 155/72 H Blood Pressure Mean 99 99 Pulse Ox 94 94 94 Oxygen Delivery Method Room Air Room Air Room Air Positive well nourished and well developed General Appearance ED: well developed Neck supple and no JVD Resp normal respiratory effort and clear to auscultation bilaterally Cardio Rate: tachycardic Rhythm: abnormal rhythm regularly irregular GI soft to palpation, non-tender and non-distended Neuro Neuro Narrative: Patient is nonverbal. Patient does not look to her right. Strength is 0/5 in the right upper and lower extremities. There is right facial weakness. Sensorium / Orientation: alert NIHSS NIHSS Initial: 1a Level of Consciousness: 2 1b LOC Questions (Score 2 if aphasic/stupor): 2 2 Best Gaze (If aphasic, use reflexive mvmts.): 1 4 Facial Palsy: 2 5 Motor Arm Right (UN = amputation/fusion): 3 6 Motor Leg Right: 3 9 Best Language: 2 10 Dysarthria (mute, coma=2, intubated=UN): 1 Total Score: 16 MDM MDM MDM Narrative Medical decision making narrative: Differential diagnosis includes ischemic stroke, hemorrhagic stroke, electrolyte abnormality, cardiac dysrhythmia, and cardiac ischemia. CT scan of the brain will be obtained to assess for acute stroke. CTA of the head and neck will be obtained to assess for large vessel occlusion. Chest x-ray will be obtained to assess for pneumonia and cardiomegaly. CBC will be obtained to assess for leukocytosis and anemia. Basic metabolic profile will be obtained to assess for electrolyte abnormality and renal function. High-sensitivity troponin will be obtained to assess for cardiac ischemia. PT with INR and PTT will be obtained to assess for coagulopathy. EKG will be obtained to assess for cardiac dysrhythmia and cardiac ischemia. Lab Data Attestation: I reviewed the patient's lab results. Lab results narrative: CBC was reviewed and was within normal limits. Basic metabolic profile was reviewed and was within normal limits. Labs: Laboratory Results - last 24 hr 07/19/22 07/19/22 13:35 13:35 WBC 10.9 RBC 4.39 Hgb 13.3 Hct 40.1 MCV 91.3 MCH 30.3 MCHC 33.2 RDW Std Deviation 48.2 H RDW Coeff of Bianca 14.5 Plt Count 304 MPV 9.4 Immature Gran % (Auto) 0.500 Neut % (Auto) 85.7 H Lymph % (Auto) 8.6 L [place] % (Auto) 4.9 Eos % (Auto) 0.0 Baso % (Auto) 0.3 Absolute Neuts (auto) 9.3 H Absolute Lymphs (auto) 0.93 Nucleated RBC % 0 Sodium 136 Potassium 3.6 Chloride 105 Carbon Dioxide 24.0 Anion Gap 7 BUN 27 H Creatinine 0.86 Estim Creat Clear Calc 37.83 Est GFR (MDRD) Af Amer 80 Est GFR (MDRD) Non-Af 66 BUN/Creatinine Ratio 31.3 H Glucose 154 H Calcium 10.1 Troponin I High Sens 31 Radiography Diagnostic Testing: Clinical Impression(s) from Imaging Studies Brain CT 07/19/22 13:33 IMPRESSION: Ischemic change involving the left posterior frontal parietal lobes as well as the left basal ganglion. N.B. : The above Results were Read Back by Cam Cruz MD to Dr Madison DO, and understanding confirmed on 07/19/2022 13:47:06 (ET). Electronically Signed: Cam Cruz MD at 13:48 EDT , ADDENDUM: 07/19/22 1355 IMPRESSION: Ischemic change involving the left posterior frontal parietal lobes as well as the left basal ganglion. N.B. : The above Results were Read Back by Cam Cruz MD to Dr Madison DO, and understanding confirmed on 07/19/2022 13:47:06 (ET). Electronically Signed: Cam Cruz MD at 13:48 EDT , CT scan of the brain was obtained. There is ischemic changes involving the left posterior frontal parietal lobes as well as the left basal ganglion. This was interpreted by the radiologist and was also independently reviewed by myself. CTA of the head and neck was obtained. There is a cut off of the M2 branch just proximal to the sylvian arteries. This was interpreted by the radiologist and was also independently reviewed by myself. EKG Initial EKG: Attestation: I personally reviewed and interpreted this EKG as follows: Interpretation: Atrial Fibrillation and Non-Specific ST Changes Comments: EKG was obtained. On my independent interpretation, it shows atrial fibrillation with a rate of 147. There is a lot of baseline artifact. There are nonspecific ST-T wave changes noted. QRS interval was normal at 32 ms. QTc interval was normal at 303 ms. [place] was normal at 64. Compared to previous EKG of 05/24/2019, the atrial fibrillation is new. Prior EKG tracings: available for review Prior: Changed (The atrial fibrillation is new compared to previous EKG dated 05/24/2019) Management Discussion w/another healthcare provider: Power Plant Electrician (Case was discussed with with Dr. Trujillo, stroke neurologist at [facility]) and Radiologist Treatment and Re-Evaluation Narrative: Stroke orders were initiated upon arrival. Case was discussed with Dr. Diggs, stroke neurologist from [facility]. He agrees with radiologist interpretation of the CTA of a large vessel occlusion of the M2 branch. Patient will be transferred to [facility] for thrombectomy and intervention. Stroke Documentation Questions Stroke Team Activated: Yes Reviewed Inclusion/Exclusion criteria: Yes Was Patient considered for Endovascular Intervention?: Yes-CTA +,PT transferred for further eval of endovascular intervention IV Thrombolytic Administered: No No contraindications from thrombolytic administration: No Critical Care Time Critical Care Time: Yes Critical care time (excluding procedures): 30-74 minutes (42), Including time spent:, Discussing w/Patient &/or Family/Process Manager, Discussing w/Consultants, Arranging Admission or Transfer and Performing Direct Patient Care at Bedside Discharge Plan Triage Chief Complaint: Stroke Alert ED Provider: Rosendo Wallace Dx/Rx/DC Orders Clinical Impression: 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, Atrial fibrillation Prescriptions: No Action benazepril [Lotensin] 40 MG tablet 40 mg PO DAILY amlodipine 2.5 MG tablet 2.5 mg PO DAILY Label Comments: TAKE 1 TABLET BY MOUTH EVERY DAY chlorthalidone 25 MG tablet 25 mg PO DAILY baclofen 10 MG tablet 10 mg PO QHS Label Comments: TAKE 1 TABLET BY MOUTH EVERYDAY AT BEDTIME omega-3 fatty acids-fish oil 1 EACH capsule 1 cap PO DAILY omeprazole 20 MG capsule,delayed release(DR/EC) 20 mg PO DAILY Primary Care Provider: Robby Bautista Referrals: Robby Bautista MD [Primary Care Provider] - Disposition Disposition: Acute Care Hospital Discharge Location: [facility]
[2022-07-19 14:10] VITALS: BMI 29.2
--- NOTE | 2022-07-19 14:20 | RAD_ITS ---
STUDY: X-RAY CHEST REASON FOR EXAM: Female, 87 years old. Neuro deficit, acute, stroke suspected TECHNIQUE: Single AP portable view of the chest. COMPARISON: Comparison is made with prior study December 20, 2014. FINDINGS: EKG electrodes are seen. The lungs are clear and expanded. There is no demonstrated pleural abnormality. There is mild cardiac enlargement. Normal mediastinum and rima. Normal visualized pulmonary arteries. There is atherosclerotic calcification of the aortic arch with tortuosity. Normal visualized thoracic spine. There is degenerative osteoarthritis of the bilateral shoulders. Hiatal hernia. RAD/Chest 1 View IMPRESSION: No acute abnormality is seen. Electronically Signed: Cam Cruz MD at 14:38 EDT ,
[2022-07-19 14:30] VITALS: BP 150/71; PULSE 124; RESP 24; O2SAT 93
[2022-07-19 15:00] VITALS: BP 155/72; PULSE 110; RESP 22; O2SAT 94
--- NOTE | 2022-07-19 15:04 | CHAPLAIN ---
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 _x__ Other (describe below) Sacrament/Intervention ___ Active listening ___ Anointing ___ Restoration ___ Bereavement ___ Communion ___ Stephanie exploration ___ ___ Life review _x__ Prayer ___ Reconciliation ___ Sacrament of Sick _x__ Supportive presence ___ Wedding ___ Other (describe below) Pastoral Comments stroke alert called for this patient; D[facility] in [facility] and offered support; pt is to be transferred to [place] for treatment; met son in the room and offered support to both son and patient; pt is nonverbal at this time but eyes are open; gave calm reassurance of care and offer of prayer; son states that pt is member of [employer] and prayer is appreciated; no other needs at this time
== END 2022-07-19 15:10 | disposition short-term general hospital (02) ==
PROVIDERS: Emergency Provider Emergency Medicine; PCP Internal Medicine; Visit Provider Emergency Medicine
DX: I63.312 Cerebral infarction due to thrombosis of left middle cerebral artery (principal); I11.0 Hypertensive heart disease with heart failure; I50.9 Heart failure, unspecified; I48.91 Unspecified atrial fibrillation; R29.716 NIHSS score 16
CPT/HCPCS: 70450; 70496; 70498; 71045; 80048; 84484; 85025; 85610; 85730; 93005; 99285; Q9967